=== PATIENT | male | born 1960 | race Caucasian/White ===

== ENCOUNTER 2022-07-01 08:27 | Emergency (ER) | payer OTHER ==
[2022-07-01 09:29] LABS: ANION GAP 5.2 mEq/L (7-13); CHLORIDE,CL 106 mmol/L (98-107); ESTIMATED GFR 39 mL/min (>=60); SODIUM,NA 130 mmol/L (136-145)
[2022-07-01 09:34] VITALS: BP 156/90; PULSE 80
[2022-07-01] MEDS ORDERED: Furosemide 40 MG/4 ML VIAL IVPUSH ONE (09:58)
== END 2022-07-01 10:39 | disposition home or self-care (01) ==
LOC: DL.ED 08:27
DX: I11.0 Hypertensive heart disease with heart failure (principal); I50.9 Heart failure, unspecified; E11.9 Type 2 diabetes mellitus without complications; Z79.899 Other long term (current) drug therapy; Z79.84 Long term (current) use of oral hypoglycemic drugs
CPT/HCPCS: 36415; 71046; 80053; 83605; 83880; 84484; 85025; 87040; 93005; 96374; 99285; J1940